=== PATIENT | female | born 1960 | race Two or more races ===

== ENCOUNTER 2024-04-16 10:42 | Outpatient (RCR) | payer MEDICAID, SELFPAY | END 2024-05-10 23:59 | disposition home or self-care (01) | LOC: SCTC 10:42 | PROVIDERS: PCP Family Medicine; Referring Provider Family Medicine; Visit Provider Internal Medicine Hematology & Oncology | DX: C50.111 Malignant neoplasm of central portion of right female breast (principal); Z17.0 Estrogen receptor positive status [ER+]; Z17.21 Progesterone receptor positive status; Z17.32 Human epidermal growth factor receptor 2 negative status; Z90.11 Acquired absence of right breast and nipple; Z92.3 Personal history of irradiation; Z79.811 Long term (current) use of aromatase inhibitors; M85.89 Other specified disorders of bone density and structure, multiple sites | CPT/HCPCS: 99213; G0463 ==

== ENCOUNTER 2024-07-17 10:41 | Outpatient (RCR) | payer MEDICAID, SELFPAY ==
--- NOTE | 2024-07-20 22:08 | CTCFLWUP_ITS ---
Patient: COLUMBA BARNARD : 1960 Page 4 of 5 FOLLOW UP NOTE DATE OF SERVICE: 07/17/2024 NAME: COLUMBA BARNARD ACCOUNT: [id number] : 1960 AGE: 64 INTERVAL HISTORY: Patient is doing well. ONCOLOGY HISTORY: DIAGNOSIS: Malignant neoplasm of overlapping sites of right female breast [ICD10] C50.811 Stage IIa (T1, N1, M0) ER positive, NM positive, HER-2/cesilia negative, grade 2 invasive ductal carcinoma of the right breast (08/19/2020. Status post right modified radical mastectomy (09/24/2020). Postoperatively Ms. Barnard was started on anastrozole in [place]. Anastrozole discontinued on 01/24/2024 due to generalized bodyaches. Aromasin started on 02/27/2024 S/p right chest wall radiation therapy from 04/27/2021 - 06/13/2021 Prosigna (R) score 28. Risk classification is low. Bone density test done on 06/21/2023 showed osteopenia. Patient is started on alendronate (09/24/2023) DATE OF DIAGNOSIS: 08/19/2020. STAGE/TNM: Stage IIa (T1, N1, M0) ER positive, NM positive, HER-2/cesilia negative, grade 2 invasive ductal carcinoma of the right breast TREATMENT HISTORY: Care?Plan Start?Date Cycle Day Intent zometa?q?30?days,?q?90?days?for?bone?mets 07/17/2024 1 90 Maintenance HISTORY OF PRESENT ILLNESS: Columba Barnard is a 64-year-old SPA speaking female with history of diabetes for last 9 years currently on Metformin had mammograms done in earlier part of 2010. 08/19/2020: Patient had right breast biopsy in [place]. Pathology showed the following 09/24/2020: Patient had right breast modified radical mastectomy in [place]? 01/06/2020: WBC 5.2, ANC 2.3, hemoglobin 13.1, MCV 92, platelets 11.8, creatinine 0.57, CEA 1.5, CA 15-3 4.6. 01/13/2021: CT scan of the chest, abdomen and pelvis with IV contrast? 03/08/2021: Prosigna test? 04/26/2021: Bone density test?osteopenia. 06/21/2023: Bone density test OTHER MEDICAL HISTORY/CONDITIONS: FAMILY HISTORY: ?Clone Family Hx? 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 alendronate - 70 mg 1 tab Weekly 2. Aromasin - 25 mg 1 tab Daily 3. atorvastatin - 10 mg 1 tab Daily 4. bisoprolol fumarate - 5 mg 1 tab Daily 5. calcium - 250 mg 1 tab Twice a Day 6. losartan - 50 mg Twice a Day 7. metformin - 850 mg Twice a Day?Palabra Meds? Medications Last Reconciled by Yadira Clarke MA on 07/17/2024 ALLERGIES: No Known Drug Allergies REVIEW OF SYSTEMS: A complete 14-point review of systems was performed and is negative except as noted in interval history. PHYSICAL EXAMINATION: VITAL SIGNS: Temperature?99, B/P?125/73, Oxygen?Saturation?97% Weight?195?lbs PAIN: 0 - No pain ECOG Performance Status: 1 - Symptomatic; ambulatory; restricted in strenuous activity GENERAL APPEARANCE: Appears well, in no apparent distress, appropriately interactive. HEENT: Normocephalic, no temporal wasting, normal conjunctiva, no scleral icterus, normal hearing, lips without lesions, neck normal range of motion. CARDIOVASCULAR: Not assessed. PULMONARY: Normal respiratory effort, no respiratory distress or use of accessory muscles, speaking in full sentences, no tachypnea. EXTREMITIES: No pedal edema or cyanosis. SKIN: Normal skin appearance. NEUROLOGIC: Alert and oriented x4. PSHYCHIATRIC: Appropriate affect, mood normal, behavior normal, intact thought and speech. LABORATORY DATA: I have personally reviewed and interpreted each of the patient?s relevant lab tests, abnormal findings are below: Date ASSESSMENT/PLAN: #1 history of breast cancer stage IIa (T1c, M1, M0) grade 2, ER positive, NM positive, HER-2/cesilia negative invasive ductal carcinoma of the right breast s/p right modified radical mastectomy. S/p adjuvant radiation therapy to the right chest wall. Prosigna test showed low score of 28. Chemotherapy is not indicated. Cont Aromasin 25 mg p.o. daily..anastrazole was not tolerated #2 osteopenia Bone density test done on 06/21/2023 showed osteopenia. Continue alendronate 70 mg weekly patient will be changed to Zometa once cleared by dentist #3 type 2 diabetes. Follow-up with the PCP RTC in 6 months CBC and CMP 6 months RETURN TO CLINIC: 6 months BILLING AND COMPLIANCE: I reviewed external records from providers outside my specialty as summarized above. I spent a total of 50 minutes on this patient?s care on the day of their visit excluding time spent related to any billed procedures. This time includes time spent with the patient as well as time spent documenting in the medical record, reviewing patients records and tests, obtaining history, placing orders, communicating with other healthcare professionals, counseling the patient, family or caregiver, and/or care coordination for the diagnoses above. Electronically Signed by: Danny Martini MD T: 10:06 PM CC: Chary? PCP: Oleksandr Garcia Referring: Oleksandr Garcia This document was completed utilizing speech recognition software. Grammatical errors, random word insertions, pronoun errors, and incomplete sentences are an occasional consequence of this system due to software limitations, ambient noise, and hardware issues. Any formal questions or concerns about the content, text or information contained within the body of this dictation should be directly addressed to the provider for clarification.
== END 2024-08-08 23:59 | disposition home or self-care (01) ==
LOC: SCTC 10:41
PROVIDERS: PCP Family Medicine; Referring Provider Family Medicine; Visit Provider Internal Medicine Hematology & Oncology
DX: C50.811 Malignant neoplasm of overlapping sites of right female breast (principal); Z17.0 Estrogen receptor positive status [ER+]; Z17.21 Progesterone receptor positive status; Z17.32 Human epidermal growth factor receptor 2 negative status; Z90.11 Acquired absence of right breast and nipple; M85.89 Other specified disorders of bone density and structure, multiple sites; E11.9 Type 2 diabetes mellitus without complications; Z79.84 Long term (current) use of oral hypoglycemic drugs; Z79.811 Long term (current) use of aromatase inhibitors
CPT/HCPCS: 99213; G0463

== ENCOUNTER 2024-08-11 12:59 | Outpatient (RCR) | payer MEDICAID, SELFPAY | END 2024-09-08 23:59 | disposition home or self-care (01) | LOC: SCTC 12:59 | PROVIDERS: PCP Family Medicine; Referring Provider Family Medicine; Visit Provider Internal Medicine Hematology & Oncology | DX: M85.89 Other specified disorders of bone density and structure, multiple sites (principal); C50.111 Malignant neoplasm of central portion of right female breast; Z17.0 Estrogen receptor positive status [ER+]; Z17.21 Progesterone receptor positive status; Z17.32 Human epidermal growth factor receptor 2 negative status; Z79.811 Long term (current) use of aromatase inhibitors; Z90.11 Acquired absence of right breast and nipple | CPT/HCPCS: 96365; J3489 ==

== ENCOUNTER 2024-09-16 09:36 | Outpatient (RCR) | payer MEDICAID, SELFPAY | END 2024-10-08 23:59 | disposition home or self-care (01) | LOC: SCTC 09:36 | PROVIDERS: PCP Family Medicine; Referring Provider Family Medicine; Visit Provider Nurse Practitioner Family | DX: M85.89 Other specified disorders of bone density and structure, multiple sites (principal); C50.811 Malignant neoplasm of overlapping sites of right female breast; Z17.0 Estrogen receptor positive status [ER+]; Z17.21 Progesterone receptor positive status; Z17.32 Human epidermal growth factor receptor 2 negative status; Z79.811 Long term (current) use of aromatase inhibitors; E11.9 Type 2 diabetes mellitus without complications; Z90.11 Acquired absence of right breast and nipple | CPT/HCPCS: 99212; G0463 ==

== ENCOUNTER → 2025-01-21 | Outpatient (CLI) | payer MEDICAID, SELFPAY ==
--- NOTE | 2025-01-21 | XR_ITS ---
Examination: Screening digital mammography, unilateral left Computer aided detection 3-D breast Tomosynthesis, unilateral Date and time of exam: January 21, 2025 1201 hours Compared to mammograms dating to October 21, 2021 Indication: Screening Technique: Nonmagnified MLO, CC views of the left breast to been obtained, reconstructed from 3-D Tomosynthesis images. R2 computer aided detection program utilized for evaluation of suspicious masses and/or abnormal calcifications. 3-D Tomosynthesis images obtained. Findings: Scattered areas of fibroglandular density Scar formation left breast consistent with patient's history left breast biopsy 2020 Stable focal asymmetry upper left breast MLO view anterior depth Impression: BI-RADS category II Benign findings Recommend 1 year follow-up mammogram.
== END | disposition home or self-care (01) ==
PROVIDERS: PCP Family Medicine; Referring Provider Nurse Practitioner Family; Visit Provider Nurse Practitioner Family
DX: Z12.31 Encounter for screening mammogram for malignant neoplasm of breast (principal); R92.323 Mammographic fibroglandular density, bilateral breasts; C50.811 Malignant neoplasm of overlapping sites of right female breast
CPT/HCPCS: 77063; 77067

== ENCOUNTER 2025-01-28 15:17 | Outpatient (RCR) | payer MEDICAID, SELFPAY ==
--- NOTE | 2025-02-02 00:55 | CTCFLWUP_ITS ---
Patient: COLUMBA BARNARD : 1960 Page 4 of 6 FOLLOW UP NOTE DATE OF SERVICE: 01/28/2025 NAME: COLUMBA BARNARD ACCOUNT: [id number] : 1960 AGE: 64 INTERVAL HISTORY: Patient Columba Barnard, presented for a follow-up visit. History of osteopenia, DEXA 06/21/2023. She started Zometa 4 mg on 08/11/2024 patient experienced bilateral ankle swelling and redness to heels 4 days after medication, which has since resolved. States that it was found to be not related to Zometa. ONCOLOGY HISTORY: DIAGNOSIS: Malignant neoplasm of overlapping sites of right female breast [ICD10] C50.811 Stage IIa (T1, N1, M0) ER positive, IL positive, HER-2/cesilia negative, grade 2 invasive ductal carcinoma of the right breast (08/19/2020. Status post right modified radical mastectomy (09/24/2020). Postoperatively Ms. Barnard was started on anastrozole in [place]. Anastrozole discontinued on 01/24/2024 due to generalized bodyaches. Aromasin started on 02/27/2024 S/p right chest wall radiation therapy from 04/27/2021 - 06/13/2021 Prosigna (R) score 28. Risk classification is low. Bone density test done on 06/21/2023 showed osteopenia. Patient is started on alendronate (09/24/2023) Zometa on 08/11/2024, discontinued due to ankle swelling. DATE OF DIAGNOSIS: 08/19/2020. STAGE/TNM: Stage IIa (T1, N1, M0) ER positive, IL positive, HER-2/cesilia negative, grade 2 invasive ductal carcinoma of the right breast TREATMENT HISTORY: Care?Plan Start?Date Cycle Day Intent zometa?q?30?days,?q?90?days?for?bone?mets 08/11/2024 1 90 Maintenance HISTORY OF PRESENT ILLNESS: Columba Barnard is a 64-year-old S[place] speaking female with history of diabetes for last 9 years currently on Metformin had mammograms done in earlier part of 2010. 08/19/2020: Patient had right breast biopsy in [place]. Pathology showed the following 09/24/2020: Patient had right breast modified radical mastectomy in [place]? 01/06/2020: WBC 5.2, ANC 2.3, hemoglobin 13.1, MCV 92, platelets 11.8, creatinine 0.57, CEA 1.5, CA 15-3 4.6. 01/13/2021: CT scan of the chest, abdomen and pelvis with IV contrast? 03/08/2021: Prosigna test? 04/26/2021: Bone density test?osteopenia. 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 alendronate - 70 mg 1 tab Weekly 2. Aromasin - 25 mg 1 tab Daily 3. atorvastatin - 10 mg 1 tab Daily 4. bisoprolol fumarate - 5 mg 1 tab Daily 5. calcium - 250 mg 1 tab Twice a Day 6. losartan - 50 mg Twice a Day 7. metformin - 850 mg Twice a Day Medications Last Reconciled by Yadira Grey MD on 01/28/2025 ALLERGIES: No Known Drug Allergies REVIEW OF SYSTEMS: A complete 14-point review of systems was performed and is negative except as noted in interval history. PHYSICAL EXAMINATION: VITAL SIGNS: Temperature?99.2, B/P?113/72, Oxygen?Saturation?98% Weight?196?lbs PAIN: 0 - No pain ECOG Performance Status: 0 - Asymptomatic and fully active GENERAL APPEARANCE: Appears well, in no apparent distress, appropriately interactive. HEENT: Normocephalic, no temporal wasting, normal conjunctiva, no scleral icterus, normal hearing, lips without lesions, neck normal range of motion. CARDIOVASCULAR: Not assessed. PULMONARY: Normal respiratory effort, no respiratory distress or use of accessory muscles, speaking in full sentences, no tachypnea. EXTREMITIES: No pedal edema or cyanosis. SKIN: Normal skin appearance. NEUROLOGIC: Alert and oriented x4. PSHYCHIATRIC: Appropriate affect, mood normal, behavior normal, intact thought and speech. LABORATORY DATA: I have personally reviewed and interpreted each of the patient?s relevant lab tests, abnormal findings are below: Date ASSESSMENT/PLAN: 1. History of breast cancer stage IIa (T1c, M1, M0) grade 2, ER positive, IL positive, HER-2/cesilia negative invasive ductal carcinoma of the right breast s/p right modified radical mastectomy, 08/19/2020. S/p adjuvant radiation therapy to the right chest wall. Prosigna test showed low score of 28. Chemotherapy is not indicated. Anastrazaole was started 2020, discontinued due to body aches. Continue Aromasin 25 mg p.o. daily, started 02/27/2024. Bilateral mammogram screening due 01/2025. Will check for MRD with [facility] 2. osteopenia Bone density test done on 06/21/2023 showed osteopenia. She was started on Zometa 4 mg on 08/11/2024 patient experienced bilateral ankle swelling and redness to heel 4 days post-administration, which has since resolved. The patient does not want to continue Zometa treatment. Patient is planning dental, patient advised to wait 6 months after administration of zometa to get dental work done, after 02/11/2025. We will consider reclast 6 months after dental work is done. Patient is on alendronate 70mg weekly po. Continue calcium. 3. Continue f/u with PCP for chronic conditions. History of type 2 diabetes. #4 tiredness Will do anemia workup along with B12 deficiency ORDERS: Order # Description [id number] MD Follow Up 6 Month + CBC with Auto Diff + Comprehensive Metabolic Panel - 12 + [id number] Vitamin B-12 + Iron Panel + Ferritin + Folic Acid; Serum RETURN TO CLINIC: I reviewed the diagnosis, prognosis, and recommended treatment/procedure options with the patient (and/or their legal physician representative), including the potential benefits, risks, side effects and alternative therapies. We also discussed the option of no treatment and the possibility of clinical trial participation, if applicable. All questions were addressed, and they demonstrated understanding. They provided informed consent to proceed with the proposed plan of care. BILLING AND COMPLIANCE: I reviewed external records from providers outside my specialty as summarized above. I spent a total of 50 minutes on this patient?s care on the day of their visit excluding time spent related to any billed procedures. This time includes time spent with the patient as well as time spent documenting in the medical record, reviewing patients records and tests, obtaining history, placing orders, communicating with other healthcare professionals, counseling the patient, family or caregiver, and/or care coordination for the diagnoses above. Electronically Signed by: Danny Martini MD T: 12:53 AM CC: Ran?Candice? PCP: Oleksandr Garcia Referring: Oleksandr Garcia This document was completed utilizing speech recognition software. Grammatical errors, random word insertions, pronoun errors, and incomplete sentences are an occasional consequence of this system due to software limitations, ambient noise, and hardware issues. Any formal questions or concerns about the content, text or information contained within the body of this dictation should be directly addressed to the provider for clarification.
== END 2025-02-08 23:59 | disposition home or self-care (01) ==
LOC: SCTC 15:17
PROVIDERS: PCP Family Medicine; Referring Provider Family Medicine; Visit Provider Internal Medicine Hematology & Oncology
DX: C50.111 Malignant neoplasm of central portion of right female breast (principal); Z17.0 Estrogen receptor positive status [ER+]; Z17.21 Progesterone receptor positive status; Z17.32 Human epidermal growth factor receptor 2 negative status; Z90.11 Acquired absence of right breast and nipple; Z79.811 Long term (current) use of aromatase inhibitors; E11.9 Type 2 diabetes mellitus without complications; M85.80 Other specified disorders of bone density and structure, unspecified site; E53.8 Deficiency of other specified B group vitamins
CPT/HCPCS: 99213; G0463